=== PATIENT | female | born 1960 | race Caucasian/White ===

== ENCOUNTER 2016-07-09 11:30 | Outpatient (CLI) | payer OTHER ==
[2015-10-13 22:06] VITALS: BP 149/72
== END 2016-07-09 11:32 ==
LOC: LAB 11:30
PROVIDERS: ATTEND Physician Assistant
DX: R06.02 Shortness of breath (principal)
CPT/HCPCS: 36415; 83880

== ENCOUNTER 2016-07-14 09:25 | Outpatient (CLI) | payer OTHER ==
[2015-10-13 22:06] VITALS: BP 149/72
[2016-07-14] MEDS ORDERED: ALBUTEROL SULFATE 2.5 MG/3 ML AMPUL.NEB NEB ONE (09:46)
== END 2016-07-14 09:26 ==
LOC: RT 09:25
PROVIDERS: ATTEND Physician Assistant
DX: R06.02 Shortness of breath (principal)
CPT/HCPCS: 94060

== ENCOUNTER 2016-07-16 08:17 | Outpatient (CLI) | payer OTHER ==
[2015-10-13 22:06] VITALS: BP 149/72
[2016-07-16 08:49] LABS: eGFR (African) > 60; eGFR (Non-African) > 60
--- NOTE | 2016-07-17 05:20 | Diagnostic Imaging Report ---
MARGARITA REA [facility] [address] [facility].[address] [address] Report Submission Date: July 16, 2016 10:09:30 AM CDT Patient Study Name: ADALI MCGEE Date: July 16, 2016 9:12:58 AM CDT Modality Type: CT\SR Gender: F Description: CT CHEST W/ CONTRAST : 62 Institution: [facility] Physician: MARGARITA REA CT chest with contrast. History: Shortness of breath for 1 year. Technique: Transaxial computed tomography images of the chest were obtained following the uneventful ministration of intravenous contrast cord to standard protocol. Findings: There is a 2.7 x 2.2 cm right middle lobe spiculated mass most concern for primary bronchogenic malignancy. There is no evidence of hilar or mediastinal adenopathy. No axillary or supraclavicular adenopathy. There is no acute infiltrate or additional nodule noted. No pleural effusion or pneumothorax. The heart size normal. Vascular structures are normal in course and caliber. Limited views of the upper abdomen demonstrates diffuse steatosis of the liver. The osseous structures appear to be intact. Impression: 1. 2.7 x 2.2 cm spiculated right middle lobe mass, most concern for primary bronchogenic malignancy. 2. No evidence of adenopathy within the chest. 3. Diffuse hepatic steatosis. Electronically signed on July 16, 2016 10:09:30 AM CDT by: Jaziel MCGRATH
== END 2016-07-16 08:20 ==
LOC: RAD 08:17
PROVIDERS: ATTEND Physician Assistant
DX: R06.02 Shortness of breath (principal); R06.09 Other forms of dyspnea
CPT/HCPCS: 36415; 71260; 80048; 83880; Q9966

== ENCOUNTER 2017-04-01 16:11 | Emergency (ER) | payer OTHER ==
--- NOTE | 2017-04-01 16:21 | ED Physician Documentation ---
General Adult - HISTORIAN Historian: patient - HPI Stated Complaint: chest pain, sob Chief Complaint: General Adult Timing: still present Severity: moderate Further Comments: yes (Pt is a 57 yo female with c/o chest pain and sob. Pt has hx COPD. Pt states that sx occurred while she was taking a nap. This has happened before, also during a nap. Pt has had some sx of heartburn in the past. Pt also has had sinus congestion for several days. No vomiting or diaphoresis. Pain did not persist and pt is pain free at time of exam.) - ROS CONST: no problems EYES/ENT: other (sinus pressure/congestion) CVS/RESP: chest pain, shortness of breath GI/: denies: vomiting MS/SKIN/LYMPH: none - PAST HX Past History: other (COPD,) Allergies/Adverse Reactions: Allergies Allergy/AdvReac Type Severity Reaction Status Date / Time No Known Allergies Allergy Verified 04/01/17 16:37 Home Medications: Ambulatory Orders Medication Instructions Recorded Azithromycin [Zithromax] 250 mg PO DAILY #6 tablet 04/01/17 - SOCIAL HX Smoking History: quit greater than 1 year - FAMILY HX Family History: No - VITAL SIGNS Vital Signs: Vital Signs Temp Pulse Resp BP Pulse Ox 149/72 10/13/15 22:04 - REVIEWED ASSESSMENTS Nursing Assessment Reviewed: Yes Vitals Reviewed: Yes Progress - Progress Progress: ASA 325 mg po NS 500 cc IVF Probable GERD Sinusitis Z-sharon. Use as directed. Nasal washes 1-2 times daily as tolerated. Zantac or Pepcid (over the counter) for possible acid reflux. - EKG/XRAY/CT EKG: NSR (HR=65; normal EKG.) XRAY: chest (neg) General Adult Physical Exam - PHYSICAL EXAM GENERAL APPEARANCE: no distress EENT: pharynx normal NECK: normal inspection, supple RESPIRATORY: no resp distress, chest non-tender, other (cough) CVS: reg rate & rhythm, heart sounds normal, no murmur ABDOMEN: soft, no organomegaly, normal bowel sounds BACK: normal inspection, no CVA tenderness SKIN: warm/dry, normal color EXTREMITIES: non-tender, normal range of motion, no evidence of injury, no edema NEURO: oriented X3, motor nml, sensation nml Discharge Clincal Impression: Probable Acid Reflux, Sinusitis Prescriptions: Azithromycin [Zithromax] 250 mg PO DAILY #6 tablet Referrals: Jayesh Grey PA [Primary Care Provider] - Condition: Good Disposition: 01 HOME, SELF-CARE Decision to Admit: NO Decision Time: 17:43
[2017-04-01] MEDS: ASPIRIN 81 MG CHEW TAB PO ONE (16:40)
[2017-04-01 16:45] LABS: BASOPHILS % 0.4 (0.0-1.5); EOSINOPHILS % 4.7 % (0.0-6.8); MEAN CORPUSCULAR HEMOGLOBIN 27.5 pg (28.0-34.0); MONOCYTES % 5.7 % (0.0-11.0); NEUTROPHILS # 4.3 # k/uL (1.4-7.7)
[2017-04-01 16:52] LABS: eGFR (African) > 60; eGFR (Non-African) > 60
[2017-04-01] MEDS: 0.9 % SODIUM CHLORIDE 500 ML IV ONE (16:53)
[2017-04-01 17:48] VITALS: BP 163/69
--- NOTE | 2017-04-01 18:38 | Diagnostic Imaging Report ---
KLARISSA MONACO~ [facility] [address] [facility] [address] [place] [address]. [id number] ~ ~ ~ ~ Report Submission Date: Apr 01, 2017 4:57:00 PM VETERINARY MICROBIOLOGIST Patient ~ Study Name: ADALI MCGEE ~ Date: Apr 01, 2017 4:46:27 PM VETERINARY MICROBIOLOGIST ~ Modality Type: CR Gender: F ~ Description: CHEST : 62 ~ Institution: [facility] Physician: KLARISSA MONACO ~ ~ ~ Examination: Portable chest History: Evaluate lungs Comparison exam: None available for direct review Findings: Single view of the chest demonstrates a normal cardiac and mediastinal silhouette. Vascular calcification aortic arch. Lung alcantar without focal infiltrate. No blunting of the costophrenic margins.~ Osseous structures are appropriate for age. Impression: No acute appearing pulmonary process. ~ Electronically signed on Apr 01, 2017 4:57:00 PM VETERINARY MICROBIOLOGIST by: Denny MCGRATH
== END 2017-04-01 17:46 | disposition home or self-care (01) ==
LOC: ED 16:11
DX: R07.9 Chest pain, unspecified (principal); J44.1 Chronic obstructive pulmonary disease with (acute) exacerbation; J32.9 Chronic sinusitis, unspecified; Z87.891 Personal history of nicotine dependence
CPT/HCPCS: 71010; 80053; 82550; 82553; 83880; 84484; 85025; 96365; 99283; J7060; S1016

== ENCOUNTER 2017-09-23 13:43 | Outpatient (CLI) | payer OTHER ==
--- NOTE | 2017-09-23 18:41 | Diagnostic Imaging Report ---
MARY CARMEN HOWE [facility] [address] [facility].[address] [address] Report Submission Date: Sep 23, 2017 2:29:55 PM CDT Patient Study Name: ADALI MCGEE Date: Sep 23, 2017 1:45:43 PM CDT Modality Type: DX Gender: F Description: LOWER EXTREMITY : 62 Institution: [facility] Physician: MARY CARMEN HOWE Left foot History: Foot pain Three views of the left foot were obtained which demonstrate a small plantar calcaneal spur. Otherwise, no osseous abnormalities are noted. Mineralization is within normal limits. Alignment is normal. Impression: Small plantar calcaneal spur. Otherwise, no osseous abnormality. Electronically signed on Sep 23, 2017 2:29:55 PM CDT by: Ekta MCGRATH
== END 2017-09-23 14:00 ==
LOC: RAD 13:43
PROVIDERS: ATTEND Physician Assistant
DX: M79.672 Pain in left foot (principal)
CPT/HCPCS: 73630

== ENCOUNTER 2017-10-08 15:47 | Emergency (ER) | payer OTHER ==
[2017-10-08 16:27] LABS: BASOPHILS % 0.3 (0.0-1.5); EOSINOPHILS % 4.8 % (0.0-6.8); MEAN CORPUSCULAR HEMOGLOBIN 27.6 pg (28.0-34.0); MEAN CORPUSCULAR VOLUME 85.5 fl (80.0-100.0); MONOCYTES % 5.3 % (0.0-11.0); NEUTROPHILS # 3.6 # k/uL (1.4-7.7)
[2017-10-08 16:39] LABS: eGFR (African) > 60; eGFR (Non-African) > 60
--- NOTE | 2017-10-08 17:12 | ED Physician Documentation ---
General Adult - HISTORIAN Historian: patient - HPI Stated Complaint: pain between shoulder blades Chief Complaint: General Adult Further Comments: yes (57 year old female patient presents with complaint of pain between her shoulder blades, worse with movement, denies injury or heavy lifting, Denies CP or SOB. States pain started 4 days ago.) - ROS CONST: no problems EYES/ENT: none CVS/RESP: none GI/: none MS/SKIN/LYMPH: none NEURO/PSYCH: denies: headache, fainting, dizziness, tingling, numbness, difficulty walking, difficulty with speech, anxiety, depression, other - PAST HX Past History: asthma Allergies/Adverse Reactions: Allergies Allergy/AdvReac Type Severity Reaction Status Date / Time No Known Allergies Allergy Verified 10/08/17 16:10 Home Medications: Ambulatory Orders Medication Instructions Recorded Baclofen [Liorasal] 10 mg PO TID PRN #30 tablet 10/08/17 Ketorolac Tromethamine [Toradol] 10 mg PO TID #15 tablet 10/08/17 - SOCIAL HX Smoking History: non-smoker - FAMILY HX Family History: No - VITAL SIGNS Vital Signs: Vital Signs Temp Pulse Resp BP Pulse Ox 98.4 F 57 L 16 159/64 96 10/08/17 15:48 10/08/17 15:48 10/08/17 15:48 10/08/17 15:48 10/08/17 15:48 - REVIEWED ASSESSMENTS Nursing Assessment Reviewed: Yes Vitals Reviewed: Yes Progress - EKG/XRAY/CT EKG: rhythm (SR, rate 73, no acute changes. ) ED Results Lab/Radiology - Lab Results Lab Results: Lab Results 10/08/17 10/08/17 10/08/17 16:06 16:06 16:06 WBC 6.50 K/ul K/ul (4.00-12.00) RBC 4.65 M/ul M/ul (3.90-5.20) Hgb 12.8 g/dL g/dL (12.0-16.0) Hct 39.7 % % (34.5-46.5) MCV 85.5 fl fl (80.0-100.0) MCH 27.6 pg L pg (28.0-34.0) MCHC 32.2 g/dL g/dL (30.0-36.0) RDW 13.1 % % (11.3-14.3) Plt Count 239 K/mm3 K/mm3 (130-400) Neut % (Auto) 55.9 % % (39.0-79.0) Lymph % (Auto) 31.9 % % (16.0-50.0) [place] % (Auto) 5.3 % % (0.0-11.0) Eos % (Auto) 4.8 % % (0.0-6.8) Baso % (Auto) 0.3 (0.0-1.5) Neut # (Auto) 3.6 # k/uL # k/uL (1.4-7.7) Lymph # (Auto) 2.1 # k/uL # k/uL (0.6-4.0) [place] # (Auto) 0.4 # k/uL # k/uL (0.0-0.9) Eos # (Auto) 0.3 # k/uL # k/uL (0.0-0.6) Baso # (Auto) 0.0 # k/uL # k/uL (0.0-0.5) Reactive Lymphs % 1.9 % % (0.0-5.0) Reactive Lymphs # 0.1 # k/uL # k/uL (0.0-0.8) Sodium 142 mmol/L mmol/L (136-145) Potassium 4.2 mmol/L mmol/L (3.5-5.1) Chloride 107 mmol/L mmol/L (98-107) Carbon Dioxide 26 mmol/L mmol/L (22-30) BUN 20 mg/dL H mg/dL (7-17) Creatinine 0.60 mg/dL mg/dL (0.52-1.04) Estimated Creat Clear 127 Est GFR ( Amer) > 60 (60 - ) Est GFR (Non-Af Amer) > 60 (60 - ) Glucose 137 mg/dL H mg/dL (74-106) Calcium 9.5 mg/dL mg/dL (8.4-10.2) Total Bilirubin 0.3 mg/dL mg/dL (0.2-1.3) AST 30 U/L U/L (15-46) ALT 38 U/L U/L (13-69) Alkaline Phosphatase 83 U/L U/L (38-126) Troponin I < 0.03 ng/mL L ng/mL (0.03-0.06) Total Protein 8.0 g/dL g/dL (6.3-8.2) Albumin 4.5 g/dL g/dL (3.5-5.0) - Radiology Radiology Impressions: Examination: PA and lateral chest. History: Evaluate lung alcantar. CXR, RT SIDED POSTERIOR CHEST PAIN FOR A FEW DAYS, WORSENING. PT STATES HX OF LUNG MASS REMOVED FROM RT LUNG ABOUT A YEAR AGO. FORMER SMOKER, QUIT 8 YEARS AGO (Hx) Comparison exam: 04 January 2015 Findings: PA lateral chest demonstrate a normal cardiac and mediastinal silhouette. Few vascular calcifications involving the aortic arch. No focal infiltrate. No blunting of the costophrenic margins. Osseous structures are appropriate for age. Impression: No acute pulmonary process. Electronically signed on Oct 08, 2017 4:38:28 PM CDT by: Denny Chan - Orders Orders: ED Orders Category Date Time Status Place IV Lock 1T Care 10/08/17 16:06 Active CHEST 2VIEW [RAD] Stat Exams 10/08/17 16:06 Ordered CBC/PLATELET/DIFF Stat Lab 10/08/17 16:06 Completed CMP Stat Lab 10/08/17 16:06 Completed TROPONIN I (cTnI) Stat Lab 10/08/17 16:06 Completed Ketorolac Tromethamine [Toradol] Med 10/08/17 17:01 Discontinued 30 mg IVP NOW ONE Orphenadrine Citrate [Norflex] Med 10/08/17 17:08 Once 60 mg IV NOW ONE EKG WITH COMPARISON Stat Ther 10/08/17 16:06 Ordered General Adult Physical Exam - PHYSICAL EXAM GENERAL APPEARANCE: [id number] N EENT: eye inspection normal, ENT inspection normal, pharynx normal, no signs of dehydration, LASHA, no nystagmus, TM's nml RESPIRATORY: no resp distress, chest non-tender, breath sounds normal CVS: reg rate & rhythm, heart sounds normal, equal pulses, no murmur, no gallop , PMI nml, no JVD, no friction rub, 24 ABDOMEN: soft, no organomegaly, normal bowel sounds, no abdominal bruit, no distension BACK: normal inspection, no CVA tenderness, other (Tenderness with palpation of thoracic paraspinous muscles T2-3 area, worse on right) SKIN: normal color, warm/dry, NR, INT, PAL, DR EXTREMITIES: non-tender, normal range of motion, no evidence of injury, no edema , J, 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 You may use Tylenol 325-650mg every 4hour as needed for pain. Limit your dose to less than 4 G per day. Do not take ibuprofen, aleve, naproxen or any other NSAID while you are on toradol. You may want to try massage, over the counter lidocaine patches, biofreeze, tomy lynn or aspercream . Condition: Stable Disposition: 01 HOME, SELF-CARE Decision to Admit: NO Decision Time: 17:11
[2017-10-08] MEDS: KETOROLAC TROMETHAMINE 30 MG/1ML VIAL IVP ONE (17:15)
[2017-10-08] MEDS: ORPHENADRINE CITRATE 60 MG/2ML IV ONE (17:16)
[2017-10-08 17:24] VITALS: BP 159/64
--- NOTE | 2017-10-08 18:58 | Diagnostic Imaging Report ---
EMERITA ROSARIO (LOCATION MANAGER) - ER [facility] [address] [facility].[address] [address] Report Submission Date: Oct 08, 2017 4:38:28 PM CDT Patient Study Name: ADALI MCGEE Date: Oct 08, 2017 4:08:16 PM CDT Modality Type: DX Gender: F Description: CHEST : 62 Institution: [facility] Physician: EMERITA ROSARIO (LOCATION MANAGER) - ER Examination: PA and lateral chest. History: Evaluate lung alcantar. CXR, RT SIDED POSTERIOR CHEST PAIN FOR A FEW DAYS, WORSENING. PT STATES HX OF LUNG MASS REMOVED FROM RT LUNG ABOUT A YEAR AGO. FORMER SMOKER, QUIT 8 YEARS AGO (Hx) Comparison exam: 04 January 2015 Findings: PA lateral chest demonstrate a normal cardiac and mediastinal silhouette. Few vascular calcifications involving the aortic arch. No focal infiltrate. No blunting of the costophrenic margins. Osseous structures are appropriate for age. Impression: No acute pulmonary process. Electronically signed on Oct 08, 2017 4:38:28 PM CDT by: Denny MCGRATH
== END 2017-10-08 17:24 | disposition home or self-care (01) ==
LOC: SUPCPDRO 15:47 → ED 15:47
DX: M54.9 Dorsalgia, unspecified (principal)
CPT/HCPCS: 71046; 80053; 84484; 85025; 93005; J1885; J2360; 96374; 96375; 99284; S1016

== ENCOUNTER 2017-11-18 13:55 | Outpatient (CLI) | payer OTHER ==
--- NOTE | 2017-11-18 15:31 | OP Clinic Progress Note ---
SUBJECTIVE: Patient is a 57-year-old female who presents today for follow up of left heel pain and left 2nd toe pain. The patient states that her pain is at approximately 80% or 90% improvement and she is very happy with how she is feeling at this time. The patient states that she has been using her [employer] inserts in her shoes and is surprised at how well they are helping. She would like more information regarding better inserts that she can use in the future. The patient does not feel she needs an injection at this time, and I agree with the patient. The patient does not admit to any other concerns or problems with her feet or overall, on the body. She does not admit to any fevers, chills, nausea, vomiting, shortness of breath or chest pain. OBJECTIVE: Vascular: DP and PT pulses are 2+. Capillary Refill Time: Less than 3 seconds to toes of the left foot. No edema. Derm: There is no erythema, open lesions, or varicosities. Xerotic changes with slight erythema noted to plantar left foot. Musculoskeletal: There is very mild pain noted to the dorsal left 2nd metatarsophalangeal joint and no pain noted to the left heel upon palpation. Patient has appropriate range of motion and demonstrates greatly improved ankle dorsiflexion with the knee extended and with the knee flexed, 10+ degrees dorsiflexion with both. This is greatly improved from last time. No other gross abnormalities are noted. Neurological: Light touch sensation is intact to the toes of the left foot. ASSESSMENT: 1. Tinea pedis of left foot. 2. Plantar fasciitis of left foot. 3. Gastrocnemius equinus of the left lower extremity. PLAN: The patient has improved greatly since our last visit. I do not believe there is a need for any sort of injection at this time. Information was given to be able to obtain more long lasting inserts. The patient was given information to go to [facility] in [place] where she can obtain Superfeet inserts. The patient is interested in obtaining these at this time. The patient would like to just return to clinic as needed, as she is feeling much better and is grateful for her care. She denies having any other questions or concerns. It should be noted, however, that she has not utilized any cream or ointment for the athlete's foot at this time, as she was planning on at her last visit. She thought she was going to obtain some over the counter but she did not. She asked if we could send her with a prescription and a prescription for Lotrisone 1% or 0.5%, whatever the pharmacy has, 30 grams, apply to the affected area twice daily until clear was sent to [facility] per fax. The patient had no further questions and is to return to the clinic as needed. cc: Indu MCGRATH
== END 2017-11-18 13:56 ==
LOC: POD 13:55
PROVIDERS: ATTEND Podiatrist Foot & Ankle Surgery
DX: B35.3 Tinea pedis (principal); M72.2 Plantar fascial fibromatosis; M62.462 Contracture of muscle, left lower leg
CPT/HCPCS: 99213

== ENCOUNTER 2018-08-12 23:17 | Emergency (ER) | payer OTHER ==
[2018-08-12] MEDS ORDERED: IPRATROPIUM/ALBUTEROL SULFATE 3 ML AMPUL.NEB NEB ONE (23:37)
[2018-08-12] MEDS ORDERED: ASPIRIN 81 MG CHEW TAB ONE (23:37)
[2018-08-29 14:36] LABS: BASOPHILS % 0.6 % (0.0-1.5); NEUTROPHILS # 5.5 # k/uL (1.4-7.7); eGFR (Non-African) > 60
--- NOTE | 2018-09-16 11:53 | Diagnostic Imaging Report ---
KATE COMBS [facility] [address] [facility] [address] [address] Report Submission Date: Aug 13, 2018 12:33:55 AM CDT Patient Study Name: ADALI MCGEE Date: Aug 12, 2018 11:51:08 PM CDT Modality Type: DX Gender: F Description: CHEST 1VIEW : 62 Institution: [facility] Physician: KATE COMBS AP chest Clinical history: Chest pain. Findings: Examination of the chest in single AP view demonstrates the lungs to be clear. Cardiac silhouette is within normal limits and the aorta is atherosclerotic. Monitor leads superimpose the chest. Impression: 1. Aortic atherosclerosis. 2. No active disease. Electronically signed on Aug 13, 2018 12:33:55 AM CDT by: Ba MCGRATH
== END 2018-08-13 01:11 ==
LOC: ED 23:17
DX: R07.9 Chest pain, unspecified (principal); R03.0 Elevated blood-pressure reading, without diagnosis of hypertension
CPT/HCPCS: 36415; 71045; 80053; 83880; 84484; 85025; 94640; 99282; 99283; 99284; S1016